=== PATIENT | female | born 1945 | race Caucasian/White ===

== ENCOUNTER 2017-02-07 11:30 | Emergency (ER) | payer OTHER, BC ==
[~2017-02-07] VITALS: Ht 160 cm; Wt 83.8 kg
[~2017-02-07 11:30] MED LIST: ALLEGRA ALLERG180 MG PO; ALPRAZOLAM0.25 M2 PO; CLONAZEPAM1 MG PO; COREG3.125 M1 PO; COUMADIN2 MG PO; CYMBALTA60 MG PO; HYZAAR 100-21 TABLET PO; LAMICTAL150 M1 PO; LAMICTAL25 MG PO; LEVAQUIN500 MG PO; NITROGLYCERIN0.4 MG SL; PERCOCET 5/31 TABLET PO; PRAVACHOL40 MG PO; PRAVACHOL80 MG PO; PROAIR RESPICL90 MCG IH; PROVENTIL,2.5 MG/3 M IH; SINGULAIR10 MG IH; SINGULAIR10 MG PO; SYMBICORT60 INHALAT IH; SYNTHROID137 MCG PO; THEO-24200 MG PO; ULTRACET1 TABLET PO; WARFARIN SODIUM5 MG PO; XANAX0.5 MG PO
[2017-02-07 13:49] LABS: HEMATOCRIT 38.7 % (36.0-46.0); MCH 30.3 PG (29.0-34.0); MCHC 33.3 G/DL (30.0-36.0); MCV 90.8 FL (83-99); MEAN PLAT.VOLUME 11.8 uM^3 (9.5-12.4); PLATELET COUNT 155 K/uL (156-360); RBC DIS.WIDTH-CV 13.5 % (11.8-14.6); RBC DIS.WIDTH-SD 45.7 % (39-53); RED BLOOD COUNT 4.26 M/uL (3.80-5.20); WHITE BLOOD COUNT 8.3 K/uL (4.1-10.2)
[2017-02-07 13:57] LABS: CHLORIDE 104 mEq/L (99-109); POTASSIUM 4.2 mEq/L (3.7-5.4); SODIUM 138 mEq/L (136-147)
[2017-02-07 13:59] LABS: GLUCOSE 70 mg/dL (70-99)
[2017-02-07 14:00] LABS: ANION GAP 8 MEQ/L (2-14); PROTHROMBIN TIME 39.5 (9.2-11.2); PTT 37.1 (25-32)
[2017-02-07 14:02] LABS: INTER. NORMALIZED RATIO 3.7
[2017-02-07 14:03] LABS: GFR ESTIMATE (CALCULATED) 34 mL/min/
[2017-02-07 14:04] LABS: UREA NITROGEN (BUN) 24 mg/dL (9-23)
[2017-02-07 14:11] LABS: TROP-I INTERPRETATION NEGATIVE; TROPONIN-I < 0.01 ng/mL (0.0-0.30)
[2017-02-07] MEDS ORDERED: PERCOCET 5/31 TABLET PO (16:59)
[2017-02-07 17:09] VITALS: BP 161/89
== END 2017-02-07 17:12 | disposition home or self-care (01) ==
LOC: EME 11:30
PROVIDERS: Physician Assistant
DX: S20.219A Contusion of unspecified front wall of thorax, initial encounter (principal); W18.30XA Fall on same level, unspecified, initial encounter; E11.9 Type 2 diabetes mellitus without complications; J44.9 Chronic obstructive pulmonary disease, unspecified; E78.5 Hyperlipidemia, unspecified; I10 Essential (primary) hypertension; K21.9 Gastro-esophageal reflux disease without esophagitis; Z87.442 Personal history of urinary calculi; Z79.01 Long term (current) use of anticoagulants; F17.200 Nicotine dependence, unspecified, uncomplicated; Z86.711 Personal history of pulmonary embolism
CPT/HCPCS: 70450; 71020; 71250; 80048; 84484; 85027; 85610; 85730; 93005; 99281; 99285; J3010